=== PATIENT | female | born 1955 | race Caucasian/White ===

== ENCOUNTER 2021-06-28 16:34 | Emergency (ER) | payer SELFPAY ==
[~2021-06-28] VITALS: Ht 162.6 cm; Wt 56.8 kg
[2021-06-28] MEDS ORDERED: ketorolac trometh inj. 60 MG/2 ML VIAL IM ONE (16:45)
[2021-06-28] MEDS ORDERED: orphenadrine citrate 60mg/2ml inj. IM ONE (16:45)
[2021-06-28] MEDS ORDERED: NO HOME MEDS (16:51)
[2021-06-28] MEDS ORDERED: oxyCODONE/APAP 5-325mg tablet PO ONE (18:00)
[2021-06-28] MEDS ORDERED: ondansetron 4mg rapidly disintigrating tab PO ONE (18:00)
[2021-06-28] MEDS ORDERED: diazepam 5mg tablet PO ONE (19:30)
[2021-06-28] MEDS ORDERED: oxyCODONE/APAP 10/325mg tablet PO ONE (19:30)
[2021-06-28 21:03] VITALS: BP 98/56
[2021-06-28] MEDS ORDERED: OXYC-138 PO ×2 (21:37→21:55)
== END 2021-06-28 22:02 | disposition home or self-care (01) ==
LOC: ER 16:35
DX: M54.89 Other dorsalgia (principal)
CPT/HCPCS: 72131; 96372; 99284; J1885; J2360